=== PATIENT | male | born 1995 | race Hispanic/Latino ===

== ENCOUNTER 2019-01-25 18:43 | Emergency (ER) | payer SELFPAY ==
[2019-01-25 19:04] LABS: #Basophils 0.1 thou/uL (0.0-0.2); #Eosinphils 0.1 thou/uL (0.0-0.7); #Lymphocytes 1.7 thou/uL (1.20-3.40); #Monocytes 0.7 thou/uL (0.11-0.59); #Neutrophils 8.1 thou/uL (1.40-6.50); %Eosinophils 0.8 % (0.0-10.0); %Lymphocytes 15.9 % (21.0-51.0); %Monocytes 6.1 % (0.0-10.0); %Neutrophils 76.1 % (42.0-75.0); Hemoglobin 16.1 g/dL (14.0-18.0); Mean Corpuscular HGB CONC 34.8 g/dL (32.0-36.0); Mean Corpuscular Hemoglobin 32.3 pg (27.0-31.0); Mean Corpuscular Volume 93.1 fL (78.0-98.0); Mean Platelet Volume 7.9 fL (7.4-10.4); Platelet Count 281 thou/uL (130-400); RBC Distribution Width 11.6 % (11.5-14.5); Red Blood Cell (RBC) Count 4.98 mill/uL (4.70-6.10); White Blood Cell (WBC) Count 10.6 thou/uL (4.8-10.8)
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
[2019-01-25 19:30] LABS: ALT (SGPT) 26 U/L (8-55); AST (SGOT) 26 U/L (5-34); Albumin 4.8 g/dL (3.5-5.0); Alkaline Phosphatase 123 U/L (40-150); BUN (Urea Nitrogen) 14 mg/dL (8.9-20.6); Bilirubin, Total 0.6 mg/dL (0.2-1.2); Calc. Creatinine Clearance 0 mL/min (70-130); Carbon Dioxide 22 mmol/L (22-29); Chloride 105 mmol/L (98-107); Estimated GFR-MDRD 90; Globulin 3.2 g/dL (2.4-3.5); Glucose 116 mg/dL (70-105); Lipase 24 U/L (8-78); Potassium 3.3 mmol/L (3.5-5.1); Sodium 140 mmol/L (136-145)
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
[2019-01-25] MEDS ORDERED: Adacel (T-DAP) 0.5 ML SYRINGE ONE (19:37)
[2019-01-25] MEDS ORDERED: Ondansetron PF 4 MG/2 ML Vial ONE ×3 (20:11→21:12)
[2019-01-25 20:20] LABS: Anion Gap 16 mmol/L (10-20)
[2019-01-25] MEDS ORDERED: Lidocaine 1% w/Epinephrine 1:100K 20 ML VIAL ONE (20:24)
[2019-01-25] MEDS ORDERED: Ketorolac Tromethamine 30 MG/ML VIAL ONE (21:12)
== END 2019-01-25 22:15 | disposition home or self-care (01) ==
LOC: ERS 18:43
DX: S82.62XA Displaced fracture of lateral malleolus of left fibula, initial encounter for closed fracture (principal); S01.81XA Laceration without foreign body of other part of head, initial encounter; S40.212A Abrasion of left shoulder, initial encounter; Z23 Encounter for immunization; V86.59XA Driver of other special all-terrain or other off-road motor vehicle injured in nontraffic accident, initial encounter
CPT/HCPCS: 12013; 29505; 70450; 71045; 72125; 80053; 83690; 85025; 90471; 90715; 96374; 96375; 96376; G0390; J1885; J2001; J2405

== ENCOUNTER 2022-10-15 09:33 | Observation (INO) | payer OTHER, SELFPAY ==
[2022-10-15] MEDS ORDERED: Piperacillin/Tazobactam 3.375 GM VIAL ONE (09:53)
[2022-10-15] MEDS ORDERED: Sodium Chloride 0.9% 100 ML ONE (09:53)
[2022-10-15] MEDS ORDERED: Bupivacaine/Epinephrine 0.25% 30 ML VIAL ONE (10:15)
[2022-10-15] MEDS ORDERED: Iopamidol 30 ML ONE (10:15)
[2022-10-15] MEDS ORDERED: Midazolam HCl 2 mg/2 ml Vial ONE (10:21)
[2022-10-15] MEDS ORDERED: fentaNYL PF 100 MCG/2 ML SYRINGE ONE ×3 (10:22→12:03)
[2022-10-15] MEDS ORDERED: Ondansetron PF 4 MG/2 ML Vial ONE (10:26)
[2022-10-15] MEDS ORDERED: NEOSTIGMINE 3 MG/3 ML SYR 3 MG/3 ML SYRINGE ONE (10:26)
[2022-10-15] MEDS ORDERED: Glycopyrrolate 0.2 MG/ML 5 ML SYRINGE ONE (10:26)
[2022-10-15] MEDS ORDERED: PROPOFOL 200 MG/20 ML VIAL ONE (10:26)
[2022-10-15] MEDS ORDERED: Rocuronium Bromide 10 MG/ML (10ML VIAL) ONE (10:26)
[2022-10-15] MEDS ORDERED: Lidocaine 1% PF 5 ML VIAL ONE (10:26)
[2022-10-15] MEDS ORDERED: Ketorolac Tromethamine 30 MG/ML VIAL ONE (10:26)
[2022-10-15] MEDS ORDERED: Dexamethasone 20 MG/5 ML VIAL ONE (10:26)
[2022-10-15] MEDS ORDERED: Ondansetron PF 4 MG/2 ML Vial IVP PRN (12:49)
[2022-10-15] MEDS ORDERED: Dextrose 50% Abboject 50 ML SYRINGE SLOW IVP PRN (12:49)
[2022-10-15] MEDS ORDERED: Dextrose 5% in Water 1,000 ML IV PRN (12:49)
[2022-10-15] MEDS ORDERED: Ipratropium/Albuterol 3 ML NEB NEB PRN (12:49)
[2022-10-15] MEDS ORDERED: Calcium Carbonate 500 MG ChewTAB PO PRN (12:49)
[2022-10-15] MEDS ORDERED: Promethazine HCl 25 MG/ML VIAL IM PRN ×2 (12:49→12:51)
[2022-10-15] MEDS ORDERED: hydrALAZINE 20 MG/ML VIAL SLOW IVP PRN (12:49)
[2022-10-15] MEDS ORDERED: Mag-Al 1200 mg/1200 mg/30 ML UDCUP PO PRN (12:49)
[2022-10-15] MEDS ORDERED: Ondansetron HCl/PF 4 MG/2 ML Vial IVP PRN (12:51)
[2022-10-15] MEDS ORDERED: traMADol HCl 50 MG TAB PO PRN (12:52)
[2022-10-15] MEDS: Acetaminophen 325 MG TAB PO SCH ×4 (13:10→23:35)
[2022-10-15] MEDS: Lactated Ringer's 1,000 ML IV SCH ×2 (14:12→23:34)
[2022-10-15] MEDS ORDERED: FLU VACC QS2022-23(6MOS UP)/PF 60 MCG/0.5 ML SYRINGE IM ONE (16:15)
[2022-10-15] MEDS: Ketorolac Tromethamine 30 MG/ML VIAL IVP SCH ×2 (17:15→23:34)
[2022-10-15] MEDS: traMADol HCl 50 MG TAB PO SCH ×2 (17:15→23:35)
[2022-10-15 19:17] VITALS: BMI 30.1
[2022-10-15] MEDS: Famotidine 20 MG TAB PO SCH (20:52)
[2022-10-15] MEDS ORDERED: Famotidine/PF 20 mg/2ml Vial SLOW IVP SCH (21:00)
[2022-10-16] MEDS: Ketorolac Tromethamine 30 MG/ML VIAL IVP SCH (05:11)
[2022-10-16] MEDS: Acetaminophen 325 MG TAB PO SCH ×2 (05:12→08:41)
[2022-10-16] MEDS: traMADol HCl 50 MG TAB PO SCH (05:13)
[2022-10-16 05:32] LABS: #Lymphocytes 1.5 thou/uL (1.20-3.40); #Monocytes 1.1 thou/uL (0.11-0.59); #Neutrophils 7.4 thou/uL (1.40-6.50); %Basophils 0.2 % (0.0-1.0); %Eosinophils 0.2 % (0.0-10.0); %Lymphocytes 14.9 % (21.0-51.0); %Monocytes 10.8 % (0.0-10.0); %Neutrophils 73.9 % (42.0-75.0); Hemoglobin 13.9 g/dL (14.0-18.0); Mean Corpuscular HGB CONC 34.3 g/dL (32.0-36.0); Mean Corpuscular Hemoglobin 32.7 pg (27.0-31.0); Mean Corpuscular Volume 95.4 fl (78.0-98.0); Mean Platelet Volume 7.9 fL (7.4-10.4); Platelet Count 292 10x3/uL (130-400); RBC Distribution Width 11.7 % (11.5-14.5); Red Blood Cell (RBC) Count 4.25 mill/uL (4.70-6.10)
[2022-10-16 06:02] LABS: ALT (SGPT) 66 U/L (8-55); AST (SGOT) 53 U/L (5-34); Albumin 3.7 g/dL (3.5-5.0); Alkaline Phosphatase 80 U/L (40-110); Anion Gap 14 mmol/L (10-20); BUN (Urea Nitrogen) 7 mg/dL (8.9-20.6); Bilirubin, Total 0.8 mg/dL (0.2-1.2); Calc. Creatinine Clearance 181 mL/min (70-130); Calcium 8.9 mg/dL (7.8-10.44); Carbon Dioxide 21 mmol/L (22-29); Chloride 106 mmol/L (98-107); Estimated GFR 124; Globulin 2.8 g/dL (2.4-3.5); Glucose 105 mg/dL (70-105); Potassium 4.2 mmol/L (3.5-5.1); Protein, Total 6.5 g/dL (6.0-8.3); Sodium 137 mmol/L (136-145)
[2022-10-16] MEDS: Famotidine 20 MG TAB PO SCH (08:41)
[2022-10-16] MEDS: Lactated Ringer's 1,000 ML IV SCH (08:43)
[2022-10-16 09:16] VITALS: BP 116/65; TEMP 98.1
== END 2022-10-16 11:55 | disposition home or self-care (01) ==
LOC: SDC 09:33 → SURG B 12:49
PROVIDERS: ADMIT Surgery; ATTEND Surgery
PROC: 0FT44ZZ Resection of Gallbladder, Percutaneous Endoscopic Approach (ICD-10-PCS; principal; 2022-10-15)
DX: K80.00 Calculus of gallbladder with acute cholecystitis without obstruction (principal); K82.A1 Gangrene of gallbladder in cholecystitis; K66.0 Peritoneal adhesions (postprocedural) (postinfection); F17.210 Nicotine dependence, cigarettes, uncomplicated; K83.8 Other specified diseases of biliary tract
CPT/HCPCS: 36415; 80053; 83735; 84100; 85025; 88304; C1889; J1100; J1885; J2250; J2405; J2543; J2704; J3490; J7120; Q9967